=== PATIENT | male | born 1990 | race Two or more races ===

== ENCOUNTER 2025-05-02 14:01 | Inpatient (IN) | payer MEDICAID, OTHER ==
[~2025-05-02] VITALS: Ht 170.2 cm; Wt 96.8 kg
[2025-05-02 14:03] VITALS: PULSE 54; RESP 20; O2SAT 100
[2025-05-02] MEDS ORDERED: ONDANSETRON ODT 4 MG TAB PO PRN (14:45)
[2025-05-02] MEDS: SODIUM CHLORIDE 0.9% 1,000 ML IV ONE (14:52)
--- NOTE | 2025-05-02 14:59 | ED.PDOC ---
GI ASSESSMENT HPI Comments Nikolai Vick is a 34-year-old male, with no relevant past medical history. The patient was brought to the ED by EMS with chief complain of 1 day of nausea and vomit, he reports vomit >6 times, the vomit is gastric content, no blood. Associated with dizziness. On further questioning the patient reports he was smoking marijuana the night before. Today, the patient reports persistence of vomit and start presenting epigastric pain 7/10, no irradiates. The patient denies hematemesis, diarrhea, sick contacts, eating food out of regular diet, fever, chills, dysuria or other symptoms. The patient will be further evaluated. Chief Complaint: Nausea and vomit Time Seen by MD: 14:40 Reviewed Notes: Nurses Notes, Medications, Allergies Allergies: Coded Allergies: NO KNOWN ALLERGIES (Unverified , 05/02/25) Information Source: Patient Mode of Arrival: EMS Timing: Hours Vomitus: Food Particles, Watery Past Medical History PAST MEDICAL HISTORY: Denies Surgical History: Denies all surgeries Social History Smoker: Non-Smoker Alcohol: Occasionally Drugs: Marijuana (He smoke marijuana prior the symptoms start) Lives In: Home Constitutional: denies: chills, diaphoresis, fatigue, fever, malaise, sweats, weakness, others EENTM: denies: blurred vision, double vision, ear bleeding, ear discharge, ear drainage, ear pain, ear ringing, eye pain, eye redness, hearing loss, mouth pain, mouth swelling, nasal discharge, nose bleeding, nose congestion, nose pain, photophobia, tearing, throat pain, throat swelling, voice changes, others Respiratory: denies: cough, hemoptysis, orthopnea, SOB at rest, shortness of breath, SOB with excertion, stridor, wheezing, others Cardiovascular: denies: chest pain, dizzy spells, diaphoresis, Dyspnea on exertion, edema, irregular heart beat, left arm pain, lightheadedness, palpitations, PND, syncope, others Gastrointestinal: reports: vomiting; denies: abdomen distended, abdominal pain, blood streaked bowels, constipated, diarrhea, dysphagia, difficulty swallowing, hematemesis, melena, nausea, poor appetite, poor fluid intake, rectal bleeding, rectal pain, others Genitourinary: denies: burning, dysuria, flank pain, frequency, hematuria, incontinence, penile discharge, penile sore, pain, testicle pain, testicle swelling, urgency, others Neurological: denies: dizziness, fainting, headache, left sided numbness, left sided weakness, numbness, paresthesia, pre-existing deficit, right sided numbness, right sided weakness, seizure, speech problems, tingling, tremors, weakness, others Musculoskeletal: denies: back pain, gout, joint pain, joint swelling, muscle pain, muscle stiffness, neck pain, others Integumetry: denies: bruises, change in color, change in hair/nails, dryness, laceration, lesions, lumps, rash, wounds, others Allergic/Immunocompromised: denies: Difficulty Healing, Frequent Infections, Hives, Itching, others Hematologic/Lymphatic: denies: anemia, blood clots, easy bleeding, easy bruising, swollen glands, others Endocrine: denies: excessive hunger, excessive sweating, excessive thirst, excessive urination, flushing, intolerance to cold, intolerance to heat, unexplained weight gain, unexplained weight loss, others Psychiatric: denies: anxiety, bipolar disorder, depression, hopeless, panic disorder, schizophrenia, sleepless, suicidal, others Physical Exam General Appearance: Mild Distress HEENT: Normal ENT Inspection, Pharynx Normal, TMs Normal Neck: Full Range of Motion, Non-Tender, Normal, Normal Inspection Respiratory: Chest Non-Tender, Lungs Clear, No Accessory Muscle Use, No Respiratory Distress, Normal Breath Sounds Cardiovascular: No Edema, No JVD, No Murmur, No Gallop, Normal Peripheral Pulses, Regular Rate/Rhythm Breast Exam: Deferred Gastrointestinal: No Organomegaly, Non Tender, No Pulsatile Mass, Normal Bowel Sounds, Soft, Tenderness (in the epigastric) Genitalia: Deferred Pelvic: Deferred Rectal: Deferred Extremities: No calf tenderness, Normal capillary refill, Normal inspection, Normal range of motion, Non-tender, No pedal edema Neurologic: Alert, analytical scientist II-XII nml as Tested, No Motor Deficits, Normal Affect, Normal Mood, No Sensory Deficits Cerebellar Function: Normal Reflexes: Normal Skin: Dry, Normal Color, Warm Lymphatic: No Adenopathy Was a procedure done? Was a procedure done?: No GI differential Dx Differential Diagnosis: Gastroenteritis, Food Poisoning Other Differential Diagnosis Cannabis hyperemesis X-Ray, Labs, Meds, VS Vital Signs Date Time Temp Pulse Resp B/P (MAP) Pulse Ox O2 Delivery O2 Flow Rate FiO2 05/02/25 20:53 98.1 78 20 121/78 (92) 97 98.1 05/02/25 20:53 78 20 97 Room Air* 0 21 05/02/25 20:00 55 12 97 Room Air* 0 21 05/02/25 20:00 99.8 55 12 120/58 (78) 97 99.8 05/02/25 18:00 97.8 66 14 121/64 (83) 99 97.8 05/02/25 16:00 97.8 50 17 133/68 (89) 100 97.8 05/02/25 14:03 98.4 54 20 128/84 100 98.4 05/02/25 14:03 54 20 100 Room Air* 0 21 05/02/25 14:03 98.4 54 20 128/84 (99) 100 98.4 Lab Test 05/02/25 20:14 Range/Units White Blood Count 10.3 4.4-10.8 10^3/uL Red Blood Count 5.02 4.5-5.90 10^6/uL Hemoglobin 15.9 13.5-17.5 g/dL Hematocrit 45.9 41.0-53.0 % Mean Corpuscular Volume 91.4 80.0-100.0 fL Mean Corpuscular Hemoglobin 31.6 28.0-32.0 pg Mean Corpuscular Hemoglobin Concent 34.5 32.0-36.0 g/dL Red Cell Distribution Width 13.7 11.8-14.3 % Platelet Count 258 140-450 10^3/uL Mean Platelet Volume 7.6 6.9-10.8 fL Neutrophils (%) (Auto) 85.2 H 37.0-80.0 % Lymphocytes (%) (Auto) 11.7 10.0-50.0 % Monocytes (%) (Auto) 2.8 0.0-12.0 % Eosinophils (%) (Auto) 0.0 0.0-7.0 % Basophils (%) (Auto) 0.3 0.0-2.0 % Neutrophils # (Auto) 8.8 H 1.6-8.6 10 ^3/uL Lymphocytes # (Auto) 1.2 0.4-5.4 10 ^3/uL Monocytes # (Auto) 0.3 0-1.3 10 ^3/uL Eosinophils # (Auto) 0 0-0.8 10 ^3/uL Basophils # (Auto) 0 0-0.2 10 ^3/uL Nucleated Red Blood Cells 0.0 % Sodium Level 147 H 136-145 mmol/L Potassium Level 4.2 3.5-5.1 mmol/L Chloride Level 113 H 98-107 mmol/L Carbon Dioxide Level 24 20-31 mmol/L Anion Gap 10 5-15 Blood Urea Nitrogen 8 L 9-23 mg/dL Creatinine 1.00 0.700-1.30 mg/dL Glomerular Filtration Rate Calc 100 >90 mL/min BUN/Creatinine Ratio 8.0 L 10.0-20.0 Serum Glucose 122 H 74-106 mg/dL Calcium Level 8.9 8.7-10.4 mg/dL Current Medications Medications (Trade) Dose Ordered Sig/Elmer Route Start Time Stop Time Status Last Admin Sodium Chloride 1,000 ml @ 1,000 mls/hr Q1H ONCE IV 05/02/25 14:45 05/02/25 15:44 DC 05/02/25 14:52 Ondansetron HCl (Zofran) 4 mg ONCE ONCE IV 05/02/25 15:00 05/02/25 15:01 DC 05/02/25 15:02 Prochlorperazine Edisylate (Compazine Inj) 5 mg ONCE ONCE IV 05/02/25 17:15 05/02/25 17:16 DC 05/02/25 17:15 X-Ray, Labs, Meds, VS Comment The patient was re-evaluated. VS are WNL Nausea and Vomit has improved CT abdomen shows a liver mass Time of 1ST Reevaluation: 17:00 Reevaluation 1ST: Unchanged Time of 2ND Reevaluation: 09:00 Reevaluation 2ND: Unchanged Patient Education/Counseling: Diagnosis, Treatment, Prognosis, Need For Follow Up Family Education/Counseling: Prognosis, Need For Follow Up SEPSIS Sepsis Screen Date sepsis recognized/suspect: May 02, 2025 Time Sepsis recognized/suspect: 1403 Recent Procedure: No On Antibiotic Therapy: No Respiratory Rate >20: No Heart Rate >90: No Temp<36 C (96.8 F) or >38.3 C: No SBP <90 or MAP <65 mmHG: No New Acute Mental Status Change: No Is the patient on CPAP, BIPAP,: No Physician Orders Drug Screen (05/02/25 14:40) Ct Ab Pel Wo Con-No Oral Or Iv (05/02/25 20:05) Urinalysis (05/02/25 20:07) Vital Signs Date Time Temp Pulse Resp B/P (MAP) Pulse Ox O2 Delivery O2 Flow Rate FiO2 05/02/25 20:53 98.1 78 20 121/78 (92) 97 98.1 05/02/25 20:53 78 20 97 Room Air* 0 21 05/02/25 20:00 55 12 97 Room Air* 0 21 05/02/25 20:00 99.8 55 12 120/58 (78) 97 99.8 05/02/25 18:00 97.8 66 14 121/64 (83) 99 97.8 05/02/25 16:00 97.8 50 17 133/68 (89) 100 97.8 05/02/25 14:03 98.4 54 20 128/84 100 98.4 05/02/25 14:03 54 20 100 Room Air* 0 21 05/02/25 14:03 98.4 54 20 128/84 (99) 100 98.4 Laboratory Tests Test 05/02/25 20:14 White Blood Count 10.3 10^3/uL (4.4-10.8) Medications Medications Dose Ordered Sig/Elmer Route Start Time Stop Time Status Last Admin Dose Admin Ondansetron HCl 4 mg ONCE ONCE IV 05/02/25 15:00 05/02/25 15:01 DC 05/02/25 15:02 Prochlorperazine Edisylate 5 mg ONCE ONCE IV 05/02/25 17:15 05/02/25 17:16 DC 05/02/25 17:15 Sodium Chloride 1,000 ml @ 1,000 mls/hr Q1H ONCE IV 05/02/25 14:45 05/02/25 15:44 DC 05/02/25 14:52 Departure 1 Departure Time of Disposition: 21:18 Impression: Primary Impression: Cannabinoid hyperemesis syndrome Additional Impressions: Gastroenteritis Liver mass Disposition: ADMITTED INPATIENT Condition: Stable Discharged With: Self Comments Goals of care discussed with the patient >35 min Discussed plan of care with Code status: Full code PCP: No established Plan discussed with: Patient, the patient agrees with the plan. Critical Care Note Critical Care Time?: No Stability Stability form required: No Heart Score Heart Score: Heart Score Response (Comments) Value History N/A 0 EKG N/A 0 Age N/A 0 Risk Factors N/A 0 Troponin N/A 0 Total 0 LYNN CROOKS RESIDENT May 02, 2025 14:59 RUSLAN WILSON RESIDENT May 02, 2025 21:19
[2025-05-02] MEDS: ONDANSETRON HCL 4 MG/2 ML VIAL IV ONE (15:02)
[2025-05-02] MEDS: PROCHLORPERAZINE EDISYLATE 5 MG/ML 2ML VIAL IV ONE (17:15)
[2025-05-02 20:00] VITALS: PULSE 55; RESP 12; O2SAT 97
[2025-05-02 20:30] LABS: Hematocrit 45.9 % (41.0-53.0); Hemoglobin 15.9 g/dL (13.5-17.5); Mean Corpuscular Hemoglobin 31.6 pg (28.0-32.0); Mean Corpuscular Volume 91.4 fL (80.0-100.0); Nucleated Red Blood Cells % 0.0 %
--- NOTE | 2025-05-02 20:48 | DVH ---
Exam: CT CT AB PEL WO CON-NO ORAL OR IV History: Abdominal pain Comparison Study: None TECHNIQUE: Multidetector CT of the abdomen and pelvis was performed from lung bases to pubic symphysi s. Imaging was performed without IV contrast. Axial, coronal, and sagittal multiplanar reformats were obtained from the axial data set by the technologist. RADIATION DOSE: CTDI vol 14.42 mGy. DLP 803.72 mGy.cm Findings: Limited evaluation of the solid organs in the absence of IV contrast. Evaluation is also degraded by motion artifact. Lungs: Minimal basilar atelectasis. Liver: Ill-defined indeterminate 3.4 cm right hepatic lesione. Spleen: Unremarkable. Pancreas: Unremarkable. Gallbladder: Unremarkable. Adrenals: Unremarkable Kidneys: Unremarkable. Pelvic Viscera: Unremarkable. Vasculature: Unremarkable. Retroperitoneum: Unremarkable. Bowel: No bowel obstruction. Portions of the bowel are decompressed, limiting assessment. The appendi x is normal. Musculoskeletal: Unremarkable. Soft tissues: Unremarkable Impression: 1. Indeterminate 3.4 cm right hepatic lesion. Comparison with any prior outside imaging is suggested in assessing acuity and interval change. MRI of the abdomen is suggested in further assessment.
[2025-05-02 20:53] VITALS: PULSE 78; RESP 20; O2SAT 97
[2025-05-02 20:55] LABS: Anion Gap 10 (5-15)
[2025-05-02 20:56] LABS: Calcium 8.9 mg/dL (8.7-10.4)
[2025-05-02 21:00] LABS: BUN/Creatinine Ratio 8.0 (10.0-20.0)
[2025-05-02 21:01] LABS: Blood Urea Nitrogen 8 mg/dL (9-23); Carbon Dioxide 24 mmol/L (20-31); Chloride 113 mmol/L (98-107); Glucose 122 mg/dL (74-106); Potassium 4.2 mmol/L (3.5-5.1); Sodium 147 mmol/L (136-145)
[2025-05-02 22:56] LABS: Triglycerides 75.0 mg/dL (< 150)
[2025-05-02 22:57] LABS: Magnesium 1.7 mg/dL (1.6-2.6)
[2025-05-02 22:58] LABS: Cholesterol 161.0 mg/dL (< 200); HDL Cholesterol 53.0 mg/dL (40-59)
[2025-05-02] MEDS ORDERED: SODIUM CHLORIDE 0.9% 1,000 ML IV SCH (23:00)
[2025-05-02] MEDS: SODIUM CHLORIDE 0.9% 1,000 ML IV SCH (23:00)
[2025-05-02] MEDS ORDERED: ONDANSETRON HCL 4 MG/2 ML VIAL IV PRN (23:00)
[2025-05-02] MEDS ORDERED: MORPHINE SULFATE INJ 2 MG/ml SYRG IV PRN (23:00)
--- NOTE | 2025-05-02 23:04 | ECG ---
[facility] Test Date: 2025-05-02 Test Time: 23:01:12 Pat Name: REED WEIR Department: [facility] ED Patient ID: [id number] Room: 0291T Gender: M Enterprise Integration Developer: NOREEN : 1990 Requested By: RUSLAN WILSON Order Number: [id number] Reading MD: Zach Myers Measurements Intervals Rupert Rate: 58 P: 43 UT: 139 QRS: 75 QRSD: 96 T: 56 QT: 405 QTc: 398 Interpretive Statements Sinus rhythm ST elev, probable normal early repol pattern Electronically Signed On 05-04-2025 22:12:59 PDT by Zach Myers Please click the below link to view image of tracing.
--- NOTE | 2025-05-02 23:06 | DVHHPRES ---
History of Present Illness Resident Creating Document: DAVID HOFF RESIDENT History of Present Illness This is a 34-year-old male without significant past medical history, presented to the ER with chief complain of nausea and vomiting since 1 day. Patient reports 7-10 episodes of vomiting and inability to put anything down since yesterday. He reports eating a pizza and chocolate from [employer], soon after which he started complaining left-sided abdominal pain followed by vomiting, vomitus contained yellow, brown black food content due to chocolate consumption. He also complained of chest pain since last night, described as chest tightness, without aggravating or relieving factors. No fresh blood seen. No diarrhea, fever, chills, palpitations reported. Patient denies travel to at the [facility], eating from food truck or consumption of raw seafood. Bradycardia and tachypnea on arrival PMHx: No significant medical history PSHx: Subcutaneous cyst removal from the lower back Social history: Reports using alcohol and marijuana (last used yesterday). Denies smoking, recreational drug use. Full code. Next to [facility] medication: None Allergic history: No known allergies Patient was examined at bedside today. Continues to complain of pain in abdomen. Patient is admitted for further evaluation and management. Review of Systems Cardiovascular: Chest Pain Gastrointestinal: Nausea, Vomiting, Abdominal Pain Allergies: Coded Allergies: NO KNOWN ALLERGIES (Unverified , 05/02/25) Exam Vital Signs Vital Signs Date Time Temp Pulse Resp B/P (MAP) Pulse Ox O2 Delivery O2 Flow Rate FiO2 05/02/25 23:01 58 05/02/25 20:53 98.1 20 121/78 (92) 97 98.1 05/02/25 20:53 Room Air* 0 21 Exam General: Patient alert and oriented in person, place and time. Patient following commands. HEENT: Normocephalic, atraumatic, moist mucous membranes Respiratory/pulmonary: Clear lungs bilaterally, vesicular murmurs present in almost all lung montero, no associated crackles or wheezes. Cardiovascular: Normal heart sounds S1 and S2 with no associated murmurs Abdomen: Tenderness in epigastric and left lower abdomen on deep palpation Extremities: There is no peripheral edema present at the lower extremities. Peripheral Pulses: 3+ Radial (R). 3+ Radial (L). 3+ Dorsalis pedis (R). 3+ Dorsalis pedis(L) Skin: No rashes or pruritus, there is no sacral edema present at this time. Neurological: Intact cranial nerves with no focal neurologic deficits Labs/Xrays Labs Test 05/02/25 22:34 05/02/25 20:14 Range/Units White Blood Count 10.3 4.4-10.8 10^3/uL Red Blood Count 5.02 4.5-5.90 10^6/uL Hemoglobin 15.9 13.5-17.5 g/dL Hematocrit 45.9 41.0-53.0 % Mean Corpuscular Volume 91.4 80.0-100.0 fL Mean Corpuscular Hemoglobin 31.6 28.0-32.0 pg Mean Corpuscular Hemoglobin Concent 34.5 32.0-36.0 g/dL Red Cell Distribution Width 13.7 11.8-14.3 % Platelet Count 258 140-450 10^3/uL Mean Platelet Volume 7.6 6.9-10.8 fL Neutrophils (%) (Auto) 85.2 H 37.0-80.0 % Lymphocytes (%) (Auto) 11.7 10.0-50.0 % Monocytes (%) (Auto) 2.8 0.0-12.0 % Eosinophils (%) (Auto) 0.0 0.0-7.0 % Basophils (%) (Auto) 0.3 0.0-2.0 % Neutrophils # (Auto) 8.8 H 1.6-8.6 10 ^3/uL Lymphocytes # (Auto) 1.2 0.4-5.4 10 ^3/uL Monocytes # (Auto) 0.3 0-1.3 10 ^3/uL Eosinophils # (Auto) 0 0-0.8 10 ^3/uL Basophils # (Auto) 0 0-0.2 10 ^3/uL Nucleated Red Blood Cells 0.0 % Sodium Level 147 H 136-145 mmol/L Potassium Level 4.2 3.5-5.1 mmol/L Chloride Level 113 H 98-107 mmol/L Carbon Dioxide Level 24 20-31 mmol/L Anion Gap 10 5-15 Blood Urea Nitrogen 8 L 9-23 mg/dL Creatinine 1.00 0.700-1.30 mg/dL Glomerular Filtration Rate Calc 100 >90 mL/min BUN/Creatinine Ratio 8.0 L 10.0-20.0 Serum Glucose 122 H 74-106 mg/dL Calcium Level 8.9 8.7-10.4 mg/dL SEPSIS Sepsis Screen Date sepsis recognized/suspect: May 02, 2025 Time Sepsis recognized/suspect: 2056 Recent Procedure: No On Antibiotic Therapy: No Respiratory Rate >20: No Heart Rate >90: No Temp<36 C (96.8 F) or >38.3 C: No SBP <90 or MAP <65 mmHG: No New Acute Mental Status Change: No Is the patient on CPAP, BIPAP,: No Physician Orders Ct Ab Pel Wo Con-No Oral Or Iv (05/02/25 20:05) C-Reactive Protein (05/02/25 22:27) Drug Screen (05/02/25 22:27) Hemoglobin A1c (05/02/25 22:27) Lipase (05/02/25 22:27) Lipid Panel (05/02/25 22:27) Magnesium (05/02/25 22:27) Phosphorus (05/02/25 22:27) PTPTT (05/02/25 22:27) Thyroid Stimulating Hormone (05/02/25 22:27) Urinalysis (05/02/25 22:27) Vitamin B12 (05/02/25 22:27) Vitamin D, 25-Hydroxy (05/02/25 22:27) Lactic Acid W/ Reflex Order (05/02/25 22:27) Admit (05/02/25 23:00) Allergies (05/02/25 23:00) Code Status (05/02/25 23:00) 0.9% Ns 1000 Ml (05/02/25 23:00) Complete Blood Count (05/03/25 04:00) Comprehensive Metabolic Panel (05/03/25 04:00) Npo (Nothing By Mouth) Diet (05/03/25 Breakfast) Condition: Serious (05/02/25 23:00) Morphine Sulfate Injection (05/02/25 23:00) Lovenox 40mg (05/02/25 23:00) Oxygen By Nasal Cannula (05/02/25 23:00) Emergency Dysrhythmia Protocol (05/02/25 23:00) Rhythm Strips Once Every Shift (05/02/25 23:00) Legal Examiner For 24 Hours (05/02/25 23:00) Notify Md Of Changes From Base (05/02/25 23:00) Stat Ekg For Chest Pain (05/02/25 23:00) Ceftriaxone Ivpb Rocephin (05/03/25 09:00) Ceftriaxone Ivpb Rocephin (05/02/25 23:00) Metronidazole Ivpb Flagyl (05/03/25 06:00) Metronidazole Ivpb Flagyl (05/02/25 23:00) Ondansetron Hcl (Zofran) (05/02/25 23:00) LIVER (05/02/25 23:00) Blood Culture (05/02/25 23:00) Stool Bacterial Culture (05/02/25 23:00) Stool Wbc (05/02/25 23:00) NS (05/02/25 23:00) NS (05/02/25 23:00) Vital Signs Date Time Temp Pulse Resp B/P (MAP) Pulse Ox O2 Delivery O2 Flow Rate FiO2 05/02/25 23:01 58 05/02/25 20:53 98.1 78 20 121/78 (92) 97 98.1 05/02/25 20:53 78 20 97 Room Air* 0 21 05/02/25 20:00 55 12 97 Room Air* 0 21 05/02/25 20:00 99.8 55 12 120/58 (78) 97 99.8 05/02/25 18:00 97.8 66 14 121/64 (83) 99 97.8 05/02/25 16:00 97.8 50 17 133/68 (89) 100 97.8 Laboratory Tests Test 05/02/25 20:14 05/02/25 22:34 White Blood Count 10.3 10^3/uL (4.4-10.8) Lactic Acid Level Pending Medications Medications Dose Ordered Sig/Elmer Route Start Time Stop Time Status Last Admin Dose Admin Ondansetron HCl 4 mg ONCE ONCE IV 05/02/25 15:00 05/02/25 15:01 DC 05/02/25 15:02 4 MG Prochlorperazine Edisylate 5 mg ONCE ONCE IV 05/02/25 17:15 05/02/25 17:16 DC 05/02/25 17:15 5 MG Sodium Chloride 1,000 ml @ 1,000 mls/hr Q1H ONCE IV 05/02/25 14:45 05/02/25 15:44 DC 05/02/25 14:52 1,000 MLS/HR Assessment/Plan Assessment/Plan Acute infectious gastroenteritis Hypovolemic Hypernatremia Leukocytosis IV fluids IV ceftriaxone 1 g daily IV metronidazole 500 mg 3 times daily Monitor electrolytes NPO; advance to Clear liquid diet as tolerated Stool WBC, culture ordered Hepatic mass CT abdomen shows ill-defined indeterminate 3.4 cm hepatic lesion Ultrasound shows 3.6 cm hyperechoic, avascular solid mass within the right hepatic lobe Evaluate completing MRI as inpatient to further classify mass, may require biopsy to rule out malignancy Costochondritis Non cardiac Chest pain, ruled out ACS Troponin WNL. EKG shows early repolarization, sinus rhythm. Cannabinoid hyperemesis syndrome Drug screen positive for cannabinoids GI cocktail- IV Protonix, p.o. sucralfate 1 g b.i.d. IV Zofran NPO; Advance diet as tolerated Counseled for absolute cannabis cessation for more than 12 minutes Obesity class 1 BMI 33.4 Counseled on lifestyle and diet DIET: NPO DVT PROPHYLAXIS: Lovenox GI PROPHYLAXIS: Protonix CODE STATUS: Goals of care discussed with patient at bedside for more than 35 minutes. Full code DISPOSITION: Med/surge Patient's status and plan discussed with the patient. Case discussed with Dr. Sanchez Plan discussed with: Patient, Other (Nurses, aunt) My Orders Orders - DAVID HOFF RESIDENT Procedure Category Date Status Time C-Reactive Protein LAB 05/02/25 In Process 22:27 Drug Screen LAB 05/02/25 Logged 22:27 Hemoglobin A1c LAB 05/02/25 In Process 22:27 Lipase LAB 05/02/25 In Process 22:27 Lipid Panel LAB 05/02/25 In Process 22:27 Magnesium LAB 05/02/25 In Process 22:27 Phosphorus LAB 05/02/25 In Process 22:27 PTPTT LAB 05/02/25 In Process 22:27 Thyroid Stimulating LAB 05/02/25 In Process Hormone 22:27 Urinalysis LAB 05/02/25 Logged 22:27 Vitamin B12 LAB 05/02/25 In Process 22:27 Vitamin D, 25-Hydroxy LAB 05/02/25 In Process 22:27 Lactic Acid W/ Reflex LAB 05/02/25 In Process Order 22:27 Admit ADMIT 05/02/25 Transmitted 23:00 Allergies FAWN 05/02/25 Transmitted 23:00 Code Status CODE 05/02/25 Transmitted 23:00 0.9% Ns 1000 Ml PHA 05/02/25 Transmitted 23:00 Complete Blood Count LAB 05/03/25 Verified 04:00 Comprehensive LAB 05/03/25 Verified Metabolic Panel 04:00 Npo (Nothing By DIET 05/03/25 Transmitted Mouth) Diet Breakfast Condition: Serious FAWN 05/02/25 Transmitted 23:00 Morphine Sulfate PHA 05/02/25 Transmitted Injection 23:00 Lovenox 40mg PHA 05/02/25 Transmitted 23:00 Oxygen By Nasal RT 05/02/25 Transmitted Cannula 23:00 Emergency Dysrhythmia [facility] 05/02/25 Transmitted Protocol 23:00 Rhythm Strips Once [facility] 05/02/25 Transmitted Every Shift 23:00 Legal Examiner For [facility] 05/02/25 Transmitted 24 Hours 23:00 Notify Md Of Changes [facility] 05/02/25 Transmitted From Base 23:00 Stat Ekg For Chest [facility] 05/02/25 Transmitted Pain 23:00 Ceftriaxone Ivpb PHA 05/03/25 Transmitted Rocephin 09:00 Ceftriaxone Ivpb PHA 05/02/25 Transmitted Rocephin 23:00 Metronidazole Ivpb PHA 05/03/25 Transmitted Flagyl 06:00 Metronidazole Ivpb PHA 05/02/25 Transmitted Flagyl 23:00 Ondansetron Hcl PHA 05/02/25 Transmitted (Zofran) 23:00 LIVER US 05/02/25 Transmitted 23:00 Blood Culture TANESHA 05/02/25 Transmitted 23:00 Stool Bacterial TANESHA 05/02/25 Transmitted Culture 23:00 Stool Wbc LAB 05/02/25 Transmitted 23:00 NS PHA 05/02/25 Transmitted 23:00 NS PHA 05/02/25 Transmitted 23:00 Date of Service: May 02, 2025 Billing Provider: KODY CARROLL MD Common Visit Codes: [id number] INP/OBS CARE (HIGH) Secondary Visit Codes: [id number] CARE PLAN 30 MINUTES DAVID HOFF RESIDENT May 02, 2025 23:06 HERLINDA GRIMES RESIDENT May 03, 2025 08:12
[2025-05-02] MEDS: POTASSIUM PHOSPHATE 22 MEQ in SODIUM CHL 0.9% 100 ML IV ONE (23:30)
[2025-05-02 23:33] LABS: INR 0.99 (0.9-1.15); Partial Thromboplastin Time 27.1 SEC (24.5-34.5); Prothrombin Time 40.5 sec (9.3-11.8)
[2025-05-02 23:47] LABS: Lipase 31.0 U/L (12-53)
[2025-05-02 23:52] LABS: Cocaine Screen, Urine Neg (NEGATIVE)
[2025-05-02 23:54] LABS: Amphetamine Screen, Urine Neg (NEGATIVE); Barbiturate Scree,Urine Neg (NEGATIVE); Benzodiazephine Screen, Urine Neg (NEGATIVE); Cannabinoid Screen, Urine Pos (NEGATIVE); Opiate Scree,Urine Neg (NEGATIVE); Phencyclidine Screen, Urine Neg (NEGATIVE)
[2025-05-02 23:57] LABS: Urine Protein, UAD TRACE (Negative)
--- NOTE | 2025-05-03 00:25 | DVH ---
ULTRASOUND DOPPLER CLINICAL HISTORY: Hepatic mass TECHNIQUE: Doppler examination of the abdomen was performed. COMPARISON: None FINDINGS: Limited evaluation due to overlying bowel gas. The liver measures 15.0 cm. There is hepatopetal flow. There is a 3.6 cm hyperechoic, avascular solid mass within the right hepatic lobe. There is no cholelithiasis. The gallbladder wall measures 3 mm. The common bile duct measures 4 mm. No sonographic simon sign. The pancreas is obscured. The right kidney measures 10.4 cm without hydronephrosis, stones, or renal mass. IMPRESSION: 1. 3.6 cm indeterminate right hepatic lesion. Further evaluation with MRI of the abdomen is suggested .
[2025-05-03] MEDS: SODIUM CHLORIDE 0.9% 500 ML IV ONE (02:38)
[2025-05-03] MEDS: ENOXAPARIN SOD 40 MG/0.4 ML SYRINGE SC ONE (02:48)
[2025-05-03 04:35] LABS: Hematocrit 46.4 % (41.0-53.0); Hemoglobin 15.7 g/dL (13.5-17.5); Mean Corpuscular Hemoglobin 30.7 pg (28.0-32.0); Mean Corpuscular Volume 91.0 fL (80.0-100.0); Nucleated Red Blood Cells % 0.0 %
[2025-05-03 04:47] LABS: Alanine Aminotransferase 16 U/L (7-40); Albumin 4.2 g/dL (3.2-4.8); Alkaline Phosphatase 71 U/L (46-116); Anion Gap 12 (5-15); BUN/Creatinine Ratio 7.9 (10.0-20.0); Bilirubin, Total 0.5 mg/dL (0.2-1.0); Carbon Dioxide 23 mmol/L (20-31); Glucose 103 mg/dL (74-106); Total Protein 6.8 g/dL (5.7-8.2)
[2025-05-03 04:57] LABS: Blood Urea Nitrogen 7 mg/dL (9-23); Calcium 8.5 mg/dL (8.7-10.4); Chloride 111 mmol/L (98-107); Potassium 3.5 mmol/L (3.5-5.1); Sodium 146 mmol/L (136-145)
[2025-05-03] MEDS: SUCRALFATE 1 GM/10 ML ORAL SUSP PO SCH (06:04)
[2025-05-03 08:00] VITALS: PULSE 58; RESP 15; O2SAT 97
[2025-05-03] MEDS: PANTOPRAZOLE 40 MG/10 ML VIAL INJ IV SCH (10:00)
[2025-05-03] MEDS ORDERED: IOHEXOL 300 MG/ML 100ML BOTTLE IJ ONE ×2 (11:26→12:40)
[2025-05-03] MEDS: POTASSIUM PHOSPHATE 22 MEQ in SODIUM CHL 0.9% 100 ML IV ONE (11:52)
[2025-05-03 13:00] VITALS: BP 114/66; PULSE 67; RESP 14; TEMP 98.3; O2SAT 100
--- NOTE | 2025-05-03 14:17 | DVHPN2 ---
Assessment/Plan Assessment/Plan progress note 34 M with no sig PMH admitted for interactible N/V, marijuana positive, abd discomfort. stool wbc negative. treating for chs. incidental hepatic mass. physical exam aox4 ctab s1 s2 rrr abdomen soft, nontender, no hepatomegaly no LE edema labs ekg imaging reviewed assessment and plan intractible vomiting unable to tolerate oral feeding dehydration canabis hyperemesis syndrome haldol clear liq iv hydration triple phase ct diet clear liq dvt ppx ambulatory full code Plan discussed with: Patient My Orders Orders - NICHOLAS DRISCOLL MD Procedure Category Date Status Time Clear Liq Diet DIET 05/03/[address] Ab Pel With Iv Con CT 05/03/25 Taken Only 12:55 Date of Service: May 03, 2025 Billing Provider: NICHOLAS DRISCOLL MD Common Visit Codes: [id number] INP/OBS CARE(MOD) NICHOLAS DRISCOLL MD May 03, 2025 14:17
--- NOTE | 2025-05-03 17:27 | DVH ---
CLINICAL HISTORY: liver mass, for triple phase CT to r/o hcc TECHNIQUE: CT of the abdomen was performed without IV contrast. CT of the abdomen and pelvis was perf ormed with IV contrast. This exam was performed according to our departmental dose optimization progr am. Up-to-date CT equipment and radiation dose reduction techniques are utilized as appropriate. CTDI 18.8 DLP 3453 COMPARISON: CT CT AB PEL WO CON-NO ORAL OR IV on DOS: 05/02/25 FINDINGS: Abdomen/Pelvis: The spleen, pancreas, gallbladder, adrenal glands, bladder, and prostate gland are unremarkable. There is a 4.4 cm right hepatic lobe mass which demonstrates peripheral nodular hyper enhancement on the venous phase which increases on the delayed phase similar to the blood pool. The abdominal aorta is normal in course and caliber. There are no significant atherosclerotic calcifi cations. There is no free intraperitoneal air or fluid. There is no enlarged abdominal or pelvic lymph node. There is no bowel wall thickening or dilatation. The appendix is normal. Other: The imaged lower thorax is unremarkable. No acute osseous abnormality is evident. IMPRESSION: 4.4 cm right hepatic lobe hemangioma.
[2025-05-03 20:32] VITALS: BP 124/72; PULSE 55; RESP 18; TEMP 98.6; O2SAT 99
[2025-05-03] MEDS ORDERED: HALOPERIDOL LACTATE 5 MG/ML INJ VIAL IM PRN (21:30)
[2025-05-03 22:05] VITALS: BP 124/78; PULSE 47; RESP 20; TEMP 98.8; O2SAT 99
[2025-05-04 01:00] VITALS: BP 139/82; PULSE 50; RESP 20; TEMP 98.2; O2SAT 99
[2025-05-04 05:00] VITALS: BP 111/74; PULSE 58; RESP 18; TEMP 98.3; O2SAT 97
[2025-05-04 07:54] LABS: Hematocrit 42.1 % (41.0-53.0); Hemoglobin 14.5 g/dL (13.5-17.5); Mean Corpuscular Hemoglobin 31.2 pg (28.0-32.0); Mean Corpuscular Volume 90.9 fL (80.0-100.0); Nucleated Red Blood Cells % 0.2 %
[2025-05-04 08:00] VITALS: PULSE 48
[2025-05-04 08:05] LABS: Sodium 145 mmol/L (136-145)
[2025-05-04 08:06] LABS: Anion Gap 10 (5-15); Carbon Dioxide 23 mmol/L (20-31)
[2025-05-04 08:07] LABS: Calcium 8.1 mg/dL (8.7-10.4); Chloride 112 mmol/L (98-107); Potassium 3.5 mmol/L (3.5-5.1)
[2025-05-04 08:11] LABS: BUN/Creatinine Ratio 7.7 (10.0-20.0); Glucose 91 mg/dL (74-106)
[2025-05-04 08:13] LABS: Blood Urea Nitrogen 7 mg/dL (9-23)
[2025-05-04 08:56] VITALS: BP 114/65; PULSE 65; RESP 18; TEMP 98.2; O2SAT 99
[2025-05-04] MEDS ORDERED: ENOXAPARIN SOD 40 MG/0.4 ML SYRINGE SC SCH (10:00)
--- NOTE | 2025-05-04 12:26 | DVHDS2 ---
Discharge Summary Date of Admission May 02, 2025 at 23:00 Date of Discharge: May 04, 2025 Labs/Diagnostic Data: Laboratory Results Test 05/04/25 06:59 05/03/25 16:20 05/03/25 04:02 05/03/25 00:15 White Blood Count 7.5 10^3/uL (4.4-10.8) Red Blood Count 4.63 10^6/uL (4.5-5.90) Hemoglobin 14.5 g/dL (13.5-17.5) Hematocrit 42.1 % (41.0-53.0) Mean Corpuscular Volume 90.9 fL (80.0-100.0) Mean Corpuscular Hemoglobin 31.2 pg (28.0-32.0) Mean Corpuscular Hemoglobin Concent 34.4 g/dL (32.0-36.0) Red Cell Distribution Width 13.4 % (11.8-14.3) Platelet Count 216 10^3/uL (140-450) Mean Platelet Volume 7.5 fL (6.9-10.8) Neutrophils (%) (Auto) 48.7 % (37.0-80.0) Lymphocytes (%) (Auto) 40.6 % (10.0-50.0) Monocytes (%) (Auto) 9.2 % (0.0-12.0) Eosinophils (%) (Auto) 0.7 % (0.0-7.0) Basophils (%) (Auto) 0.8 % (0.0-2.0) Neutrophils # (Auto) 3.7 10 ^3/uL (1.6-8.6) Lymphocytes # (Auto) 3.1 10 ^3/uL (0.4-5.4) Monocytes # (Auto) 0.7 10 ^3/uL (0-1.3) Eosinophils # (Auto) 0.1 10 ^3/uL (0-0.8) Basophils # (Auto) 0.1 10 ^3/uL (0-0.2) Nucleated Red Blood Cells 0.2 % Sodium Level 145 mmol/L (136-145) Potassium Level 3.5 mmol/L (3.5-5.1) Chloride Level 112 mmol/L (98-107) Carbon Dioxide Level 23 mmol/L (20-31) Anion Gap 10 (5-15) Blood Urea Nitrogen 7 mg/dL (9-23) Creatinine 0.91 mg/dL (0.700-1.30) Glomerular Filtration Rate Calc 112 mL/min (>90) BUN/Creatinine Ratio 7.7 (10.0-20.0) Serum Glucose 91 mg/dL (74-106) Calcium Level 8.1 mg/dL (8.7-10.4) Stool for White Cells None seen Total Bilirubin 0.5 mg/dL (0.2-1.0) Aspartate Amino Transferase (AST) 15 U/L (13-40) Alanine Aminotransferase (ALT) 16 U/L (7-40) Alkaline Phosphatase 71 U/L (46-116) Total Protein 6.8 g/dL (5.7-8.2) Albumin 4.2 g/dL (3.2-4.8) Troponin I High Sensitivity 8 ng/L (</=54) Test 05/02/25 23:20 05/02/25 22:34 05/02/25 20:14 Urine Color Yellow (Yellow) Urine Clarity Clear (Clear) Urine pH 7.5 (5.0-9.0) Urine Specific [place] 1.031 (1.001-1.035) Urine Protein Trace (Negative) Urine Ketones 3+ (Negative) Urine Blood Negative /uL (Negative) Urine Nitrite Negative (Negative) Urine Bilirubin Negative (Negative) Urine Urobilinogen Normal mg/dL (Negative) Urine Leukocyte Esterase Negative /uL (Negative) Urine RBC 8 /hpf (0 - 3) Urine Microscopic WBC 1 /HPF (0-3) Urine Squamous Epithelial Cells Few /hpf (<5) Urine Bacteria None seen /hpf (None Seen) Urine Mucus Few (None Seen) Urine Glucose Normal mg/dL (Normal) Urine Opiates Screen Neg (NEGATIVE) Urine Fentanyl Screen Neg (NEGATIVE) Urine Barbiturates Screen Neg (NEGATIVE) Urine Phencyclidine Screen Neg (NEGATIVE) Urine Amphetamines Screen Neg (NEGATIVE) Urine Benzodiazepines Screen Neg (NEGATIVE) Urine Cocaine Screen Neg (NEGATIVE) Urine Cannabinoids Screen Pos (NEGATIVE) Lactic Acid Level 1.2 mmol/L (0.4-2.0) Prothrombin Time 40.5 sec (9.3-11.8) Prothrombin Time INR 0.99 (0.9-1.15) Activated Partial Thromboplast Time 27.1 SEC (24.5-34.5) Hemoglobin A1c 5.4 % A1C (<5.7) Phosphorus Level 1.7 mg/dL (2.4-5.1) Magnesium Level 1.7 mg/dL (1.6-2.6) C-Reactive Protein High Sensitivity 0.17 mg/dL (<1.0) Triglycerides Level 75 mg/dL (< 150) Cholesterol Level 161 mg/dL (< 200) LDL Cholesterol 108 mg/dL (< 100) HDL Cholesterol 53 mg/dL (40-59) Lipase 31 U/L (12-53) Vitamin B12 Level 284 pg/mL (211-911) Vitamin D 25-Hydroxy 23.5 ng/mL (30.0-100) Thyroid Stimulating Hormone (TSH) 1.50 uIU/mL (0.55-4.78) Other Laboratory Tests 05/04/25 06:59 Brief Hx & Hospital Course: 34 M with no sig PMH admitted for interactible N/V, marijuana positive, abd discomfort. stool wbc negative. treating for chs. incidental hepatic mass. CT triple phase showed hemangioma. able to tolearate oral. stable to dc. informed to avoid canabis Condition at Discharge: Good Final Diagnosis/Problems List intractible vomiting unable to tolerate oral feeding dehydration canabis hyperemesis syndrome Discharge Disposition: Home Discharge Instruct/Medications Diet: Regular Diet comment: soft Activity: No Restrictions, As Tolerated No Active Prescriptions or Reported Meds Discharge Statement: "Patient was advised to return to the ER or call 911 if any headaches, dizziness, shortness of breath, chest pain, abdominal pain, bleeding, fevers, or worsening of medical condition. Patient was counseled about treatment plan, medications, possible side effects, patientverbalized understanding. All questions were answered to the best of my ability. This discharge took greater then 30 minutes in planning, reviewing documentation, counseling the patient, and discussing with other team members." ASSESSMENT ASSESSMENT Assessment canabis hyperemesis Date of Service: May 04, 2025 Billing Provider: NICHOLAS DRISCOLL MD Common Visit Codes: 14235-PWY/OBS DISCH DAY >30min NICHOLAS DRISCOLL MD May 04, 2025 12:26
[2025-05-04 13:00] VITALS: BP 125/82; PULSE 50; RESP 18; TEMP 97.3; O2SAT 100
[2025-05-09] MEDS ORDERED: LEVO500T91 PO (13:57)
== END 2025-05-04 14:38 | disposition home or self-care (01) | DRG 249 ==
LOC: EDBD 14:01 → ER 14:01 → OVERFLOW 23:00 → TELE-WESTW 05-03 03:14 → OVERFLOW 05-03 03:18 → TELE-WESTW 05-03 22:05
PROVIDERS: ADMIT Student in an Organized Health Care Education/Training Program; ATTEND Student in an Organized Health Care Education/Training Program
DX: A09 Infectious gastroenteritis and colitis, unspecified (principal); E87.0 Hyperosmolality and hypernatremia; R11.16 Cannabis hyperemesis syndrome; E86.0 Dehydration; D18.09 Hemangioma of other sites; M94.0 Chondrocostal junction syndrome [Tietze]; E86.1 Hypovolemia; E66.811 Obesity, class 1; Z68.33 Body mass index [BMI] 33.0-33.9, adult
CPT/HCPCS: 36415; 74176; 74177; 76705; 80048; 80053; 80061; 80307; 81001; 82306; 82607; 83036; 83605; 83690; 83735; 84100; 84443; 84484; 85025; 85048; 85610; 85730; 86141; 87040; 87045; 87077; 87186; 87427; 93005; 96361; 96374; G0378; J2405; J3490